=== PATIENT | female | born 1970 | race Caucasian/White ===

== ENCOUNTER 2019-06-10 10:15 | Emergency (ER) | payer OTHER ==
--- NOTE | 2019-06-10 10:27 | ER Document Report ---
ED Medical Screen (RME) - General Chief Complaint: Palpitations Stated Complaint: BACK PAIN Time Seen by Provider: 06/10/19 10:23 Mode of Arrival: Wheelchair Information source: Patient Notes: 49-year-old female presented to ED for complaint of squeezing scary feeling in the middle of her back across the middle of her back while in a meeting. She states her heart rate went up to 100 blood pressure went up to 183/108 became very nauseated and now she has a headache. She states she has never felt this pain before and she is becoming very scared because of this pain. She is alert oriented respirations regular nonlabored. States she does have a history of high cholesterol full thyroid she did have a thyroidectomy. States she smokes pack a day denies alcohol or drugs. [employer] - Related Data Allergies/Adverse Reactions: aspirin Allergy (Verified 06/10/19 10:23)
--- NOTE | 2019-06-10 11:03 | RADIOLOGY REPORT (SQ) ---
EXAM DESCRIPTION: CHEST 2 VIEWS COMPLETED DATE/TIME: 06/10/2019 10:46 am REASON FOR STUDY: Palpitations pain across the middle to upper back COMPARISON: None. EXAM PARAMETERS: NUMBER OF VIEWS: two views TECHNIQUE: Digital Frontal and Lateral radiographic views of the chest acquired. RADIATION DOSE: NA LIMITATIONS: none FINDINGS: LUNGS AND PLEURA: Trace linear lingular opacity, likely atelectasis or scarring. . No pl eural effusion or pneumothorax. No discrete masses. MEDIASTINUM AND HILAR STRUCTURES: No masses or contour abnormalities. HEART AND VASCULAR STRUCTURES: Heart normal size. No evidence for failure. BONES: No acute findings. HARDWARE: None in the chest. OTHER: No other significant finding. IMPRESSION: NO ACUTE RADIOGRAPHIC FINDING IN THE CHEST. TECHNICAL DOCUMENTATION: JOB ID: [id number] 2010 [employer]- All Rights Reserved Reading location - IP/workstation name: [email or web address]
[2019-06-10 11:22] LABS: ABSOLUTE BASOPHILS # (AUTO) 0.1 10^3/uL (0.0-0.2); ABSOLUTE EOSINOPHILS # (AUTO) 0.1 10^3/uL (0.0-0.6); ABSOLUTE LYMPHOCYTES (AUTO) 3.4 10^3/uL (0.5-4.7); ABSOLUTE MONOCYTES (AUTO) 0.5 10^3/uL (0.1-1.4); ABSOLUTE NEUT (AUTO) 5.6 10^3/uL (1.7-8.2); HEMATOCRIT 47.8 % (36.0-47.0); HEMOGLOBIN 16.3 g/dL (12.0-15.5); LYMPHOCYTES % (AUTO) 35.4 % (13-45); MEAN CORPUSCULAR HEMOGLOBIN 31.5 pg (27.0-33.4); MEAN CORPUSCULAR HGB CONC 34.2 g/dL (32.0-36.0); MEAN CORPUSCULAR VOLUME 92 fl (80-97); MONOCYTES % (AUTO) 4.7 % (3-13); PLATELET COUNT 266 10^3/uL (150-450); RED CELL DISTRIBUTION WIDTH 14.1 % (11.5-14.0); SEGMENTED NEUTROPHILS % (AUTO) 57.9 % (42-78); TOTAL CELLS COUNTED % (AUTO) 100 %; WHITE BLOOD COUNT 9.7 10^3/uL (4.0-10.5)
[2019-06-10] MEDS ORDERED: NORMAL SALINE 1000 ML 1,000 ML IV ONE (11:26)
[2019-06-10 11:53] LABS: ALBUMIN 5.5 g/dL (3.5-5.0); ALKALINE PHOSPHATASE 133 U/L (38-126); ANION GAP 12 (5-19); ASPARTATE AMINO TRANSFERASE 39 U/L (14-36); BILIRUBIN,DIRECT 0.3 mg/dL (0.0-0.4); BILIRUBIN,TOTAL 0.7 mg/dL (0.2-1.3); BLOOD UREA NITROGEN 12 mg/dL (7-20); CALCIUM 10.3 mg/dL (8.4-10.2); CARBON DIOXIDE 26 mmol/L (22-30); CHLORIDE 103 mmol/L (98-107); GLUCOSE 87 mg/dL (75-110); POTASSIUM 4.2 mmol/L (3.6-5.0); TOTAL PROTEIN 9.4 g/dL (6.3-8.2)
--- NOTE | 2019-06-10 12:59 | RADIOLOGY REPORT (SQ) ---
EXAM DESCRIPTION: CT CHEST WITH; CT ABD/PELVIS WITH IV ONLY COMPLETED DATE/TIME: 06/10/2019 12:20 pm REASON FOR STUDY: palpitations/back pain; back pain/palpitations CONTRAST TYPE AND DOSE: contrast/concentration: Isovue 350.00 mg/ml; Total Contrast Delivered: 91.5 ml; Total Saline Delivered: 15.0 ml RENAL FUNCTION: BUN 12 creatinine 0.57 COMPARISON: None. TECHNIQUE: CT scan of the chest performed using helical scanning technique with dynamic intravenous contrast injection. Images reviewed with lung, soft tissue and bone windows. Reconstructed coronal a nd sagittal MPR images reviewed. All images stored on PACS. All CT scanners at this facility use dose modulation, iterative reconstruction, and/or weight based d osing when appropriate to reduce radiation dose to as low as reasonably achievable (ALARA). [facility]: Dose Right [facility]: CareDose [facility]: Dose Right [facility]: Teradose 4D [facility]: Orlumet RADIATION DOSE: CT Rad equipment meets quality standard of care and radiation dose reduction techniq ues were employed. CTDIvol: 19.7 - 21.1 mGy. DLP: 2536 mGy-cm. . LIMITATIONS: None. FINDINGS: AXILLAE: No adenopathy. CHEST WALL: No masses. No subcutaneous air. LUNGS: No nodules or masses. No pneumothorax. No infiltrates. PLEURA: No effusions. No calcifications. THYROID: No masses or significant asymmetry. HILAR AND MEDIASTINAL STRUCTURES: No identified masses or abnormal nodes. AORTA AND GREAT VESSELS: No aneurysm. No dissection. PULMONARY ARTERIES: No identified pulmonary emboli. Study not optimized for the pulmonary arteries. HEART: No pericardial effusion. HARDWARE AND LIFELINES: None. BONES: No significant finding. OTHER: No other significant finding. IMPRESSION: NORMAL CT OF THE CHEST WITH IV CONTRAST. COMPARISON: None. RADIATION DOSE: CT Rad equipment meets quality standard of care and radiation dose reduction techniq ues were employed. CTDIvol: 19.7 - 21.1 mGy. DLP: 2536 mGy-cm. mGy. TECHNIQUE: CT scan of the abdomen and pelvis performed with intravenous and oral contrast using tammy olegario scanning technique with dynamic intravenous contrast injection. Images reviewed with lung, soft tissue and bone windows. Reconstructed coronal and sagittal MPR images reviewed. Delayed images for evaluation of the urinary system also acquired and evaluated. All images stored on PACS. All CT scanners at this facility use dose modulation, iterative reconstruction, and/or weight based d osing when appropriate to reduce radiation dose to as low as reasonably achievable (ALARA). [facility]: Dose Right [facility]: SureCare [facility]: Dose Right [facility]: Teradose 4D [facility]: Orlumet FINDINGS: LIVER: Normal size. No masses. No dilated ducts. SPLEEN: Normal size. No focal lesions. PANCREAS: No masses. No significant calcifications. No adjacent inflammation or peripancreatic flui d collections. Pancreatic duct not dilated. GALLBLADDER: No identified stones by CT criteria. No inflammatory changes to suggest cholecystitis. ADRENAL GLANDS: No significant masses or asymmetry. RIGHT KIDNEY AND URETER: No solid masses. No significant calcifications. No hydronephrosis or hyd roureter. LEFT KIDNEY AND URETER: No solid masses. No significant calcifications. No hydronephrosis or hydr oureter. AORTA AND VESSELS: No aneurysm. No dissection. Renal arteries, SMA, celiac without stenosis. RETROPERITONEUM: No retroperitoneal adenopathy, hemorrhage or masses. LARGE AND SMALL BOWEL: No dilatation. No masses. No wall thickening. APPENDIX: Normal. ABDOMINAL WALL: No hernia or masses. PERITONEAL CAVITY: No free air. No free fluid. No peritoneal implants or masses. PELVIS: No mass or free fluid. Normal bladder. BONES: No significant or acute findings. OTHER: No other significant finding. IMPRESSION: NORMAL CT OF THE ABDOMEN AND PELVIS WITH ORAL AND INTRAVENOUS CONTRAST. TECHNICAL DOCUMENTATION: JOB ID: [id number] Quality ID # [id number]: Final reports with documentation of one or more dose reduction techniques (e.g., Au tomated exposure control, adjustment of the mA and/or kV according to patient size, use of iterative reconstruction technique) 2010 [employer]- All Rights Reserved Reading location - IP/workstation name: [email or web address]
[2019-06-10] MEDS ORDERED: MORPHINE SULFATE 10 MG/ML INJ IV ONE (13:49)
[2019-06-10] MEDS ORDERED: ONDANSETRON HCL INJ/PF 4 MG/2 ML SDV IV ONE (13:50)
[2019-06-10 15:11] VITALS: BP 119/69
[2019-06-10 16:52] LABS: APPEARANCE,URINE CLEAR; BILIRUBIN,URINE NEGATIVE (NEGATIVE); COLOR,URINE YELLOW; GLUCOSE, URINE NEGATIVE (NEGATIVE); KETONES,URINE NEGATIVE (NEGATIVE); LEUKOCYTE ESTERASE,URINE NEGATIVE (NEGATIVE); NITRITE,URINE NEGATIVE (NEGATIVE); PROTEIN,URINE NEGATIVE (NEGATIVE); UROBILINOGEN,URINE NEGATIVE mg/dL (<2.0)
--- NOTE | 2019-06-10 17:14 | ER Document Report ---
Entered by ROBEL RICH SCRIBE 06/10/19 1117 Acting as scribe for:SHAY HIDALGO MD ED General - General Chief Complaint: Palpitations Stated Complaint: BACK PAIN Time Seen by Provider: 06/10/19 10:23 Mode of Arrival: Wheelchair Information source: Patient Notes: 49-year-old female presents to the emergency department complaining of back pressure that began this morning at her work meeting. Patient describes the pressure in her back on the right side as coming and going since this morning. Patient stated that during the episode at her work, her systolic blood pressure raised to 183, heart rate elevated and her physician co-worker stated that her heart "sounded a little irregular". Patient reports nothing out of the ordinary in her schedule or daily routine. Patient reports nausea and headache. Patient denies chest pain, abdomen pain and leg pain. Patient mentions that the pain is located where she previously had shingles recently. TRAVEL OUTSIDE OF THE [place] IN LAST 30 DAYS: No - Related Data Allergies/Adverse Reactions: aspirin Allergy (Verified 06/10/19 10:23) Home Medications: Thyroid medication Past Medical History - General Information source: Patient - Social History Smoking Status: Current Every Day Smoker Cigarette use (# per day): Yes - 1 pack per day Chew tobacco use (# tins/day): No Frequency of alcohol use: Occasional Drug Abuse: None Family History: Hypertension Patient has suicidal ideation: No Patient has homicidal ideation: No - Past Medical History Cardiac Medical History: Reports: Hx Hypercholesterolemia Past Surgical History: Reports: Hx Thyroid Surgery - Total thyroidectomy Review of Systems - Review of Systems Constitutional: No symptoms reported EENT: No symptoms reported Cardiovascular: See HPI, Heart racing. denies: Chest pain Respiratory: No symptoms reported Gastrointestinal: See HPI, Nausea. denies: Abdominal pain Genitourinary: No symptoms reported Female Genitourinary: No symptoms reported Musculoskeletal: No symptoms reported Skin: No symptoms reported Hematologic/Lymphatic: No symptoms reported Neurological/Psychological: See HPI, Headaches -: Yes All other systems reviewed and negative Physical Exam - Vital signs Vitals: Temp Pulse Resp BP Pulse Ox 97.8 F 95 18 161/94 H 100 06/10/19 10:22 06/10/19 10:22 06/10/19 10:06/10/19 10:06/10/19 10:22 - Notes Notes: Physical Exam: General: Alert, appears well. HEENT: Normocephalic. Atraumatic. PERRL. Extraocular movements intact. Oropharynx clear. Neck: Supple. Non-tender. Respiratory: No respiratory distress. Clear and equal breath sounds bilaterally. Cardiovascular: Regular rate and rhythm. Abdominal: Normal Inspection. Non-tender. No distension. Normal Bowel Sounds. Back: No gross abnormalities. Extremities: Moves all four extremities. Upper extremities: Normal inspection. Normal ROM. Lower extremities: Normal inspection. No edema. Normal ROM. Neurological: Normal cognition. AAOx4. Normal speech. Psychological: Normal affect. Normal Mood. Skin: Warm. Dry. Normal color. Course - Re-evaluation Re-evalutation: 06/10/19 15:44 Patient resting comfortably at this time after IV morphine and Zofran for her right flank pain. Patient's resting comfortably. - Vital Signs Vital signs: Temp Pulse Resp BP Pulse Ox 97.8 F 95 17 119/69 96 06/10/19 10:22 06/10/19 10:22 06/10/19 15:01 06/10/19 15:01 06/10/19 15:01 - Laboratory Result Diagrams: 06/10/19 10:53 06/10/19 10:53 Laboratory results interpreted by me: 06/10/19 06/10/19 10:53 10:53 Hgb 16.3 H Hct 47.8 H RDW 14.1 H Calcium 10.3 H AST 39 H ALT 39 H Alkaline Phosphatase 133 H Total Protein 9.4 H Albumin 5.5 H Laboratories within normal limits no acute process mildly elevated 06/10/19 15:58 Patient has mildly elevated LFTs and alkaline phosphatase there is a marginal difference over the upper limit of normal. Patient has no right upper quadrant tenderness on exam. Patient does have cholesterol elevation by history but not enough to even warrant been on medications at this time. 06/10/19 17:10 Urinalysis shows no acute process no signs of infection. - Diagnostic Test Radiology reviewed: Image reviewed, Reports reviewed Radiology results interpreted by me: 06/10/19 15:57 CT scan of the chest with contrast shows no acute process. CT scan of abdomen and pelvis with contrast does not show any acute inflammatory or obstructive process gallbladder did not show any stones any evidence of cholecystitis or any ductal dilatation. - EKG Interpretation by Me Additional EKG results interpreted by me: 06/10/19 15:58 Twelve-lead EKG done at 1039 shows normal sinus rhythm rate of 82 borderline inferior Q waves and borderline T abnormalities diffuse leads. Discharge - Discharge Clinical Impression: Acute right flank pain Condition: Stable Disposition: HOME, SELF-CARE Additional Instructions: You have acute onset of flank pain musculoskeletal on the right side. There is no urinary symptoms of any nausea vomiting. There were episodic muscle spasms that you noted on the right side of your your back causing you to become tachycardic as well as elevated blood pressure. We have found no evidence of any cardiovascular disease at this time no evidence for myocardial infarct or any kind of blood clot issues or obstruction. There is been no infection found nor any notice of any obstruction. There were mild elevations and liver function tests that are marginally above the normal limits. Do recommend that you follow-up with your primary care physician regarding follow-up on these LFT findings. CT scan showed a normal gallbladder without evidence of cholecystitis or obstruction or cholelithiasis. I recommend that she begin ibuprofen if needed for any back pain. Prescriptions: Ibuprofen [Motrin 800 mg Tablet] 800 mg PO Q8H PRN #14 tab PRN Reason: pain I personally performed the services described in the documentation, reviewed and edited the documentation which was dictated to the scribe in my presence, and it accurately records my words and actions.
--- NOTE | 2019-06-11 12:03 | EKG REPORT ---
SEVERITY:- BORDERLINE ECG - SINUS RHYTHM BORDERLINE INFERIOR Q WAVES BORDERLINE T ABNORMALITIES, DIFFUSE LEADS : Confirmed by: Bimal Nguyễn 11-Jun-2019 12:02:11
== END 2019-06-10 17:24 | disposition home or self-care (01) ==
LOC: ER 10:15
DX: R10.9 Unspecified abdominal pain (principal); R00.2 Palpitations; R11.0 Nausea; R51 Headache; R03.0 Elevated blood-pressure reading, without diagnosis of hypertension; F17.210 Nicotine dependence, cigarettes, uncomplicated; E78.00 Pure hypercholesterolemia, unspecified; Z88.6 Allergy status to analgesic agent
CPT/HCPCS: 93005; 99285; 96361; 96374; 96375; 36415; 83605; 83690; 85025; 80053; 81001; 84484; 71046; 71260; 74177; 93010; J2270; J2405; J7030